=== PATIENT | female | born 1960 | race Caucasian/White ===

== ENCOUNTER 2024-02-29 19:24 | Emergency (ER) | payer MEDICARE, MEDICAID ==
[~2024-02-29] VITALS: Ht 172.7 cm; Wt 73.0 kg
[2024-02-29 19:35] VITALS: BP 112/54; PULSE 81; RESP 20; TEMP 98.2; O2SAT 98
[2024-02-29] MEDS ORDERED: CEPH500C2 MT (21:46)
[2024-02-29] MEDS ORDERED: SULF1TAB47 MT (21:46)
[2024-03-02] MEDS ORDERED: PENT400T16 PO (03:25)
[2024-03-02] MEDS ORDERED: DULO30CA52 PO (03:25)
[2024-03-02] MEDS ORDERED: ATOR-2 PO (03:25)
[2024-03-02] MEDS ORDERED: ATOR40TA70 PO (03:25)
[2024-03-02] MEDS ORDERED: MONT-39 PO (03:25)
[2024-03-02] MEDS ORDERED: ASPI-1406 PO (03:25)
[2024-03-03] MEDS ORDERED: PRED10TA23 PO (13:13)
[2024-03-03] MEDS ORDERED: ALBU05 NEB (13:13)
== END 2024-02-29 22:07 | disposition home or self-care (01) ==
LOC: ER 20:34
DX: R21 Rash and other nonspecific skin eruption (principal); J44.89 Other specified chronic obstructive pulmonary disease; I25.10 Atherosclerotic heart disease of native coronary artery without angina pectoris; I10 Essential (primary) hypertension; I25.2 Old myocardial infarction; Z99.81 Dependence on supplemental oxygen
CPT/HCPCS: 93971; 99284

== ENCOUNTER 2024-05-16 07:52 | Emergency (ER) | payer MEDICARE, MEDICAID ==
[~2024-05-16] VITALS: Ht 165.1 cm; Wt 91.0 kg
[~2024-05-16 07:52] MED LIST: ALBU05 NEB; ASPI-1406 PO; ATOR-2 PO; DULO30CA52 PO; GUAI237L83 MT; METH10OR11 PO; MONT-39 PO; PENT400T16 PO; PRED10TA23 PO
[2024-05-16 08:03] VITALS: O2SAT 94
[2024-05-16] MEDS ORDERED: MORPHINE SULFATE 4 MG/ML INJ (FOR IV/IM USE) IV STA (08:16)
[2024-05-16] MEDS ORDERED: ONDANSETRON HCL 4MG/2ML INJ IV STA (08:16)
[2024-05-16] MEDS ORDERED: SODIUM CHLORIDE 0.9% 1,000 ML IV ONE (08:30)
[2024-05-16 10:40] LABS: CARBON DIOXIDE 32 mEq/L (21-32); CHLORIDE 104 mEq/L (98-107); SODIUM 140 mEq/L (136-145)
[2024-05-16 10:41] LABS: CALCIUM 8.5 mg/dL (8.7-10.4)
[2024-05-16 10:42] LABS: INR 0.9; PROTHROMBIN TIME 10.5 sec (9.6-11.0)
[2024-05-16 10:45] LABS: CREATININE 0.5 mg/dL (0.6-1.0)
[2024-05-16 10:46] LABS: GLUCOSE 92 mg/dL (70-105); TROPONIN I HIGH SENSITIVITY 12 ng/L (3.0-34); UREA NITROGEN BLOOD 14 mg/dL (9-23)
[2024-05-16 10:47] LABS: ALANINE AMINOTRANSFERASE 10 IU/L (10-49); ASPARTATE AMINOTRANSFERASE 12 IU/L (<34)
[2024-05-16 10:48] LABS: ALBUMIN 3.9 g/dL (3.2-4.8); BILIRUBIN DIRECT 0.2 mg/dL (<=3.0); BILIRUBIN TOTAL 0.5 mg/dL (0.1-1.0)
[2024-05-16 10:55] LABS: BASOPHILS % 0.5 % (0.0-2.0); DIFFERENTIAL COMMENT 0; EOSINOPHILS % 1.9 % (0.0-5.0); HEMOGLOBIN. 13.9 g/dL (12.0-16.0); LYMPHOCYTES % 17.1 % (20.0-50.0); MEAN CORPUSCULAR HEMOGLOBIN 34.4 pg (28.0-32.0); MEAN PLATELET VOLUME 7.1 fl (7.4-10.4); MONOCYTES % 6.2 % (2.0-8.0); NEUTROPHILS % 74.3 % (40.0-76.0); PLATELET 246 x1000/uL (130-400); RED BLOOD CELL COUNT 4.03 mill/uL (4.2-5.4); RED CELL DISTRIBUTION WIDTH 18.3 % (11.6-14.6); WHITE BLOOD COUNT 7.6 x1000/uL (4.5-11.0)
[2024-05-16] MEDS: ONDANSETRON HCL 4MG/2ML INJ IV SCH (12:03)
[2024-05-16] MEDS: MORPHINE SULFATE 4 MG/ML INJ (FOR IV/IM USE) IV SCH (12:03)
[2024-05-16] MEDS ORDERED: ACETAMINOPHEN 325MG TABLET PO PRN (12:15)
[2024-05-16] MEDS ORDERED: IPRATROPIUM/ALBUTEROL 0.5-3(2.5)MG/3ML NEB HHN PRN (12:15)
[2024-05-16] MEDS ORDERED: ONDANSETRON HCL 4MG/2ML INJ IV PRN (12:15)
[2024-05-16] MEDS ORDERED: HYDROCODONE/ACETAMINOPHEN 5/325MG TABLET PO PRN (12:15)
[2024-05-16] MEDS ORDERED: DULOXETINE HCL 30MG DR CAPSULE PO SCH (12:15)
[2024-05-16] MEDS ORDERED: ASPIRIN 81MG EC TABLET PO SCH (12:15)
[2024-05-16] MEDS ORDERED: MONTELUKAST SODIUM 10MG TABLET PO SCH (12:31)
[2024-05-16] MEDS ORDERED: PENTOXIFYLLINE 400MG TABLET PO SCH (13:00)
[2024-05-16] MEDS ORDERED: ENOXAPARIN 40MG/0.4ML SYR SUBCUT SCH (13:00)
[2024-05-16] MEDS ORDERED: DEXT 5%/0.45% NACL 1000ML 1,000 ML IV ONE (13:00)
[2024-05-16 20:10] VITALS: BP 120/69; PULSE 70; RESP 20; TEMP 36.7; O2SAT 98
[2024-05-17] MEDS ORDERED: ASPIRIN 81MG EC TABLET PO SCH (09:00)
== END 2024-05-16 20:38 | disposition left against medical advice (07) ==
LOC: ER 07:52
DX: R07.9 Chest pain, unspecified (principal); I11.0 Hypertensive heart disease with heart failure; I25.2 Old myocardial infarction; I50.9 Heart failure, unspecified; J44.89 Other specified chronic obstructive pulmonary disease; Z79.52 Long term (current) use of systemic steroids; Z79.82 Long term (current) use of aspirin; Z79.899 Other long term (current) drug therapy; Z90.49 Acquired absence of other specified parts of digestive tract; Z99.81 Dependence on supplemental oxygen
CPT/HCPCS: 99284; 74176; 96374; 71045; 96375; 80076; 80048; 83690; 85025; 85610; 84484; 36415; J2405; J2270; J7030

== ENCOUNTER 2024-09-21 11:37 | Inpatient (IN) | payer MEDICARE, MEDICAID ==
[~2024-09-21] VITALS: Ht 165.1 cm; Wt 87.1 kg
[~2024-09-21 11:37] MED LIST changes: +AMLO2.5T45 PO; +NICO-789 TD; +P20 MT; -PRED10TA23 PO
[2024-09-21 12:24] LABS: BASOPHILS % 0.6 % (0.0-2.0); EOSINOPHILS % 1.8 % (0.0-5.0); HEMATOCRIT. 41.4 % (36.0-48.0); HEMOGLOBIN. 13.2 g/dL (12.0-16.0); LYMPHOCYTES % 20.5 % (20.0-50.0); MEAN CORPUSCULAR HEMOGLOBIN 30.9 pg (28.0-32.0); MEAN CORPUSCULAR HGB CONC 31.8 g/dL (31.0-37.0); MEAN CORPUSCULAR VOLUME 97.3 fL (81.0-99.0); MEAN PLATELET VOLUME 7.9 fl (7.4-10.4); MONOCYTES % 6.8 % (2.0-8.0); NEUTROPHILS % 70.3 % (40.0-76.0); PLATELET 166 x1000/uL (130-400); RED BLOOD CELL COUNT 4.26 mill/uL (4.2-5.4); RED CELL DISTRIBUTION WIDTH 18.2 % (11.6-14.6)
[2024-09-21 12:40] LABS: CHLORIDE 100 mEq/L (98-107); POTASSIUM 4.2 mEq/L (3.5-5.1); SODIUM 141 mEq/L (136-145)
[2024-09-21 12:42] LABS: CALCIUM 9.1 mg/dL (8.7-10.4); CARBON DIOXIDE 36 mEq/L (21-32)
[2024-09-21 12:46] LABS: CREATININE 0.5 mg/dL (0.6-1.0); GLUCOSE 130 mg/dL (70-105)
[2024-09-21 12:47] LABS: UREA NITROGEN BLOOD 17 mg/dL (9-23)
[2024-09-21 12:48] LABS: TROPONIN I HIGH SENSITIVITY 7 ng/L (3.0-34)
[2024-09-21] MEDS: ACETAMINOPHEN 325MG TABLET PO ONE (13:30)
[2024-09-21] MEDS: KETOROLAC 15MG/ML VIAL IV ONE (13:30)
[2024-09-21] MEDS: LIDOCAINE 5% PATCH TOP SCH (13:30)
[2024-09-21] MEDS: METHYLPREDNISOLONE SOD SUCC 125MG/2ML (ACT-O-VIAL) IV ONE (13:30)
[2024-09-21] MEDS ORDERED: ALBUTEROL (0.083%) 2.5MG/3ML NEB HHN ONE (13:30)
[2024-09-21 13:36] LABS: INR 0.9; PARTIAL THROMBOPLASTIN TIME 24.1 sec (23.4-31.0); PROTHROMBIN TIME 9.6 sec (9.6-11.0)
[2024-09-21 13:41] VITALS: PULSE 74; RESP 20; O2SAT 97
[2024-09-21] MEDS: IPRATROPIUM/ALBUTEROL 0.5-3(2.5)MG/3ML NEB HHN ONE (13:41)
[2024-09-21 18:24] VITALS: BP 112/62; PULSE 80; RESP 16; TEMP 35.7
[2024-09-21] MEDS ORDERED: ACETAMINOPHEN 325MG TABLET PO PRN ×2 (19:00→20:15)
[2024-09-21] MEDS ORDERED: IPRATROPIUM/ALBUTEROL 0.5-3(2.5)MG/3ML NEB HHN PRN (19:00)
[2024-09-21] MEDS ORDERED: NALOXONE HCL 0.4MG/ML VIAL IV PRN (19:15)
[2024-09-21 20:00] VITALS: BP 114/73; PULSE 81; RESP 20; TEMP 36.2; O2SAT 94
[2024-09-21] MEDS ORDERED: ONDANSETRON HCL 4MG/2ML INJ IV PRN (20:15)
[2024-09-21 21:03] LABS: BG BASE EXCESS 4.2 mmol/L (-2.0-3.0); BG CARBOXYHEMOGLOBIN 1.3 % (0.5-1.5); BG DEOXYHEMOGLOBIN 4.7 % (0.0-5.0); BG FRACTION INSPIRED OXYGEN 28; BG HCO3 ACT 32.5 mmol/L (21.0-28.0); BG OXYGEN SATURATION 95.2 % (94.0-98.0); BG PO2 80.9 mmHg (83.0-108.0); BG SAMPLE SITE RIGHT RADIAL; BG TOTAL HEMOGLOBIN 14.1 g/dL (12.0-16.0); BG VENT MODE NASAL CANNULA
[2024-09-21] MEDS ORDERED: BENZ100C86 PO (22:01)
[2024-09-21] MEDS ORDERED: IBUP-2028 PO (22:01)
[2024-09-21] MEDS ORDERED: TRAZ-251 PO (22:08)
[2024-09-21] MEDS ORDERED: ALBUTEROL (0.083%) 2.5MG/3ML NEB HHN PRN (22:30)
[2024-09-21] MEDS ORDERED: GUAIFENESIN-DM 200MG-20MG/10ML UDC PO PRN (22:30)
[2024-09-21] MEDS: TRAZODONE HCL 50MG TABLET PO SCH (22:34)
[2024-09-21 23:30] VITALS: RESP 22
[2024-09-22] VITALS (10 sets, daily range): BP systolic 104–123; BP diastolic 56–70; PULSE 61–72; RESP 15–23; TEMP 35.8–36.8; O2SAT 92–100
[2024-09-22 00:12] LABS: TROPONIN I HIGH SENSITIVITY 4 ng/L (3.0-34)
[2024-09-22 08:24] LABS: HEMATOCRIT. 38.8 % (36.0-48.0); HEMOGLOBIN. 12.7 g/dL (12.0-16.0); LYMPHOCYTES % 9.4 % (20.0-50.0); MEAN CORPUSCULAR HEMOGLOBIN 31.6 pg (28.0-32.0); MEAN CORPUSCULAR HGB CONC 32.6 g/dL (31.0-37.0); MEAN CORPUSCULAR VOLUME 96.8 fL (81.0-99.0); MONOCYTES % 4.4 % (2.0-8.0); NEUTROPHILS % 86.2 % (40.0-76.0); PLATELET 153 x1000/uL (130-400); RED BLOOD CELL COUNT 4.01 mill/uL (4.2-5.4); RED CELL DISTRIBUTION WIDTH 17.4 % (11.6-14.6); WHITE BLOOD COUNT 8.2 x1000/uL (4.5-11.0)
[2024-09-22] MEDS ORDERED: ASPIRIN 81MG EC TABLET PO SCH (09:00)
[2024-09-22 09:16] LABS: TROPONIN I HIGH SENSITIVITY < 4 ng/L (3.0-34)
[2024-09-22] MEDS: BUDESONIDE 0.5MG/2ML NEB HHN SCH (09:31)
[2024-09-22] MEDS: IPRATROPIUM/ALBUTEROL 0.5-3(2.5)MG/3ML NEB HHN SCH (09:31)
[2024-09-22 09:37] LABS: CARBON DIOXIDE 35 mEq/L (21-32); CHLORIDE 98 mEq/L (98-107); POTASSIUM 4.4 mEq/L (3.5-5.1); SODIUM 139 mEq/L (136-145)
[2024-09-22 09:43] LABS: CREATININE 0.5 mg/dL (0.6-1.0); GLUCOSE 264 mg/dL (70-105); UREA NITROGEN BLOOD 14 mg/dL (9-23)
[2024-09-22 09:47] LABS: T4 FREE 1.04 ng/dL (0.89-1.76)
[2024-09-22] MEDS: AMLODIPINE 2.5MG TABLET PO SCH (09:47)
[2024-09-22] MEDS: NICOTINE 21MG PATCH TD SCH (09:47)
[2024-09-22] MEDS: ASPIRIN 81MG EC TABLET PO SCH (09:47)
[2024-09-22] MEDS: ENOXAPARIN 40MG/0.4ML SYR SUBCUT SCH (09:48)
[2024-09-22] MEDS: HYDROCODONE/ACETAMINOPHEN 5/325MG TABLET PO PRN (10:36)
[2024-09-22] MEDS: ATORVASTATIN CALCIUM 40MG TABLET PO SCH (20:20)
[2024-09-23] VITALS (7 sets, daily range): BP systolic 93–137; BP diastolic 53–82; PULSE 56–76; RESP 15–20; TEMP 36–36.6; O2SAT 94–99
== END 2024-09-23 14:20 | disposition home or self-care (01) | DRG 189 ==
LOC: ER 11:37 → EDBEDREQ 16:22 → EDBEDREQTM 16:22 → ENRESERV 16:32 → 6WST 17:56
PROVIDERS: ADMIT Internal Medicine; ATTEND Internal Medicine
PROC: 5A09357 Assistance with Respiratory Ventilation, Less than 24 Consecutive Hours, Continuous Positive Airway Pressure (ICD-10-PCS; principal; 2024-09-21)
PROC: 5A09357 Assistance with Respiratory Ventilation, Less than 24 Consecutive Hours, Continuous Positive Airway Pressure (ICD-10-PCS; 2024-09-22)
PROC: 5A09357 Assistance with Respiratory Ventilation, Less than 24 Consecutive Hours, Continuous Positive Airway Pressure (ICD-10-PCS; 2024-09-23)
DX: J96.21 Acute and chronic respiratory failure with hypoxia (principal); J44.1 Chronic obstructive pulmonary disease with (acute) exacerbation; J96.22 Acute and chronic respiratory failure with hypercapnia; I50.9 Heart failure, unspecified; K21.9 Gastro-esophageal reflux disease without esophagitis; I25.10 Atherosclerotic heart disease of native coronary artery without angina pectoris; I11.0 Hypertensive heart disease with heart failure; E11.51 Type 2 diabetes mellitus with diabetic peripheral angiopathy without gangrene; I25.2 Old myocardial infarction; Z87.891 Personal history of nicotine dependence; Z99.81 Dependence on supplemental oxygen; Z79.899 Other long term (current) drug therapy
CPT/HCPCS: 36415; 36600; 71045; 80048; 82375; 82805; 84439; 84443; 84484; 85025; 93005; 94070; 94640; 94660; 94664; 98960; 99285; G0378; J1650; J1885; J2919; J7626

== ENCOUNTER 2024-10-13 21:34 | Emergency (ER) | payer MEDICARE, MEDICAID ==
[~2024-10-13] VITALS: Ht 162.6 cm; Wt 91.0 kg
[~2024-10-13 21:34] MED LIST changes: +BENZ100C86 PO; -P20 MT; +TRAZ-251 PO
[2024-10-13 22:09] VITALS: O2SAT 96
[2024-10-13 23:12] LABS: BASOPHILS % 0.6 % (0.0-2.0); EOSINOPHILS % 1.2 % (0.0-5.0); HEMATOCRIT. 38.7 % (36.0-48.0); HEMOGLOBIN. 12.6 g/dL (12.0-16.0); LYMPHOCYTES % 27.6 % (20.0-50.0); MEAN PLATELET VOLUME 7.1 fl (7.4-10.4); MONOCYTES % 7.2 % (2.0-8.0); NEUTROPHILS % 63.4 % (40.0-76.0); PLATELET 305 x1000/uL (130-400); RED BLOOD CELL COUNT 3.98 mill/uL (4.2-5.4); RED CELL DISTRIBUTION WIDTH 17.7 % (11.6-14.6)
[2024-10-13 23:30] LABS: CREATININE 0.6 mg/dL (0.6-1.0); UREA NITROGEN BLOOD 12 mg/dL (9-23)
[2024-10-14 00:13] VITALS: BP 138/78; PULSE 74; RESP 22; TEMP 36.7; O2SAT 94
== END 2024-10-14 00:16 | disposition home or self-care (01) ==
LOC: ER 21:34
DX: R60.9 Edema, unspecified (principal); I11.0 Hypertensive heart disease with heart failure; I50.9 Heart failure, unspecified; J44.9 Chronic obstructive pulmonary disease, unspecified; Z79.899 Other long term (current) drug therapy; Z98.890 Other specified postprocedural states
CPT/HCPCS: 36415; 80048; 85025; 93971; 99284

== ENCOUNTER 2025-03-19 19:29 | Inpatient (IN) | payer MEDICARE, MEDICAID ==
[~2025-03-19] VITALS: Ht 162.6 cm; Wt 81.6 kg
[~2025-03-19 19:29] MED LIST changes: +APIX5TAB MT; +APIX5TAB PO; +ASPI-1497 MT; +ATOR-388 MT; +CEL200 PO; +FLUT1BLS10 NEB; +FURO-151 MT; +FURO40TA5 PO; +GABA-529 PO; +PRED5TAB48 MT
[2025-03-19] MEDS: SODIUM CHLORIDE 0.9% 1,000 ML IV ONE (20:51)
[2025-03-19 21:22] LABS: BASOPHILS % 0.3 % (0.0-2.0); EOSINOPHILS % 3.8 % (0.0-5.0); HEMATOCRIT. 31.7 % (36.0-48.0); HEMOGLOBIN. 10.4 g/dL (12.0-16.0); LYMPHOCYTES % 28.2 % (20.0-50.0); MEAN PLATELET VOLUME 6.7 fl (7.4-10.4); MONOCYTES % 7.4 % (2.0-8.0); NEUTROPHILS % 60.3 % (40.0-76.0); PLATELET 256 x1000/uL (130-400); RED BLOOD CELL COUNT 3.23 mill/uL (4.2-5.4); RED CELL DISTRIBUTION WIDTH 14.9 % (11.6-14.6)
[2025-03-19 21:37] LABS: INR 1.0
[2025-03-19 21:38] LABS: CREATININE 0.7 mg/dL (0.6-1.0); UREA NITROGEN BLOOD 15 mg/dL (9-23)
[2025-03-19 21:39] LABS: PROTEIN TOTAL 6.0 g/dL (6.0-8.3); TROPONIN I HIGH SENSITIVITY 6 ng/L (3.0-34)
[2025-03-19 21:40] LABS: ASPARTATE AMINOTRANSFERASE 14 IU/L (<34); BILIRUBIN DIRECT 0.1 mg/dL (<=3.0)
[2025-03-19 21:41] LABS: BILIRUBIN TOTAL 0.5 mg/dL (0.1-1.0)
[2025-03-19 23:38] LABS: BG BASE EXCESS 12.4 mmol/L (-2.0-3.0); BG CARBOXYHEMOGLOBIN 1.0 % (0.5-1.5); BG DEOXYHEMOGLOBIN 6.8 % (0.0-5.0); BG FLOW(L/min) 2.00 L/min; BG FRACTION INSPIRED OXYGEN 28%; BG HCO3 ACT 42.0 mmol/L (21.0-28.0); BG METHEMOGLOBIN 0.3 % (0.5-1.5); BG OXYGEN SATURATION 93.1 % (94.0-98.0); BG OXYHEMOGLOBIN 91.9 % (94.0-98.0); BG PCO2 87.0 mmHg (32.0-45.0); BG PH 7.302 (7.350-7.450); BG PO2 71.1 mmHg (83.0-108.0); BG SAMPLE SITE RIGHT RADIAL; BG TOTAL HEMOGLOBIN 11.8 g/dL (12.0-16.0); BG VENT MODE NASAL CANNULA
[2025-03-20] MEDS ORDERED: ASPIRIN 81MG TABLET PO ONE (01:45)
[2025-03-20] MEDS ORDERED: IOHEXOL-350 100 ML BOTTLE ONE (02:07)
[2025-03-20 03:01] VITALS: BP 125/67; PULSE 68; RESP 20; TEMP 36.7516
[2025-03-20 08:00] VITALS: BP 126/65; PULSE 63; RESP 18; TEMP 36.3; O2SAT 95
[2025-03-20] MEDS ORDERED: ACETAMINOPHEN 325MG TABLET PO PRN ×2 (10:45)
[2025-03-20] MEDS ORDERED: ONDANSETRON HCL 4MG/2ML INJ IV PRN (10:45)
[2025-03-20] MEDS ORDERED: GUAIFENESIN 200MG/10ML SUGAR FREE UDC PO PRN (10:45)
[2025-03-20] MEDS ORDERED: CLONIDINE 0.1MG TABLET PO PRN (10:45)
[2025-03-20] MEDS ORDERED: IPRATROPIUM/ALBUTEROL 0.5-3(2.5)MG/3ML NEB HHN PRN ×2 (10:45→23:30)
[2025-03-20 12:00] VITALS: BP 113/49; PULSE 61; RESP 19; TEMP 36.3; O2SAT 97
[2025-03-20] MEDS: GABAPENTIN 100MG CAPSULE PO SCH (13:17)
[2025-03-20] MEDS ORDERED: *PATIENT'S OWN MEDICATION STORAGE XX SCH (15:15)
[2025-03-20 16:00] VITALS: BP 129/63; PULSE 61; RESP 19; TEMP 36.6; O2SAT 97
[2025-03-20] MEDS ORDERED: NALOXONE HCL 0.4MG/ML VIAL IV PRN (19:45)
[2025-03-20 20:00] VITALS: BP 125/70; PULSE 63; RESP 18; TEMP 36.4; O2SAT 95
[2025-03-20] MEDS ORDERED: TRAZ-251 PO (21:21)
[2025-03-20] MEDS ORDERED: METO5TAB2 PO (21:21)
[2025-03-20] MEDS ORDERED: CLOP75TA33 PO (21:25)
[2025-03-20] MEDS ORDERED: MELO-104 PO (21:26)
[2025-03-20] MEDS: HYDROCODONE/ACETAMINOPHEN 5/325MG TABLET PO PRN (21:27)
[2025-03-20] MEDS ORDERED: FLUT1BLS10 INH (22:05)
[2025-03-20] MEDS ORDERED: MONT-39 PO (22:05)
[2025-03-20] MEDS: AMLODIPINE 2.5MG TABLET PO SCH (22:11)
[2025-03-20] MEDS: APIXABAN 5 MG TABLET PO SCH (22:12)
[2025-03-20] MEDS: TRAZODONE HCL 50MG TABLET PO SCH (22:12)
[2025-03-20] MEDS: ACYCLOVIR 400 MG TABLET PO SCH (22:15)
[2025-03-21] VITALS (8 sets, daily range): BP systolic 97–126; BP diastolic 43–77; PULSE 57–81; RESP 16–18; TEMP 36.3–36.6; O2SAT 95–98
[2025-03-21] MEDS ORDERED: METHADONE HCL 5MG TABLET PO SCH (00:45)
[2025-03-21] MEDS: METHADONE HCL 10MG TABLET PO SCH (01:21)
[2025-03-21 07:20] LABS: CREATININE 0.5 mg/dL (0.6-1.0); UREA NITROGEN BLOOD 7 mg/dL (9-23)
[2025-03-21 07:26] LABS: BASOPHILS % 0.3 % (0.0-2.0); EOSINOPHILS % 5.5 % (0.0-5.0); HEMATOCRIT. 32.2 % (36.0-48.0); HEMOGLOBIN. 10.8 g/dL (12.0-16.0); LYMPHOCYTES % 39.9 % (20.0-50.0); MEAN PLATELET VOLUME 6.9 fl (7.4-10.4); MONOCYTES % 8.6 % (2.0-8.0); NEUTROPHILS % 45.7 % (40.0-76.0); PLATELET 307 x1000/uL (130-400); RED BLOOD CELL COUNT 3.31 mill/uL (4.2-5.4); RED CELL DISTRIBUTION WIDTH 14.8 % (11.6-14.6)
[2025-03-21] MEDS: ASPIRIN 81MG EC TABLET PO SCH (08:57)
[2025-03-21] MEDS: DULOXETINE HCL 30MG DR CAPSULE PO SCH (08:58)
[2025-03-21] MEDS: NICOTINE 21MG PATCH TD SCH (09:00)
[2025-03-21] MEDS: FUROSEMIDE 40MG TABLET PO SCH (09:03)
[2025-03-21] MEDS: CELECOXIB 200MG CAPSULE PO SCH (09:04)
[2025-03-21] MEDS ORDERED: ACYC-58 PO (18:10)
[2025-03-21] MEDS: BUDESONIDE 0.5MG/2ML NEB HHN SCH (20:47)
[2025-03-22 05:09] LABS: HSV TYPE 2 SPECIFIC AB IGG Non Reactive (Non Reactive)
[2025-03-25] MEDS ORDERED: SULF1TAB48 MT (15:15)
[2025-03-26] MEDS ORDERED: KEPP500 MT (13:40)
== END 2025-03-21 21:50 | disposition home or self-care (01) | DRG 595 ==
LOC: ER 19:29 → 6WST 03-20 00:55 → EDBEDREQTM 03-20 01:06 → EDBEDREQDT 03-20 01:06 → EDBEDREQ 03-20 01:06 → ENRESERV 03-20 01:20
PROVIDERS: ADMIT Internal Medicine; ATTEND Internal Medicine
DX: B02.9 Zoster without complications (principal); L89.313 Pressure ulcer of right buttock, stage 3; I11.0 Hypertensive heart disease with heart failure; Z79.01 Long term (current) use of anticoagulants; Z79.02 Long term (current) use of antithrombotics/antiplatelets; J44.89 Other specified chronic obstructive pulmonary disease; Z99.81 Dependence on supplemental oxygen; B00.1 Herpesviral vesicular dermatitis; E78.5 Hyperlipidemia, unspecified; G62.9 Polyneuropathy, unspecified; Z95.5 Presence of coronary angioplasty implant and graft; Z86.711 Personal history of pulmonary embolism; Z79.82 Long term (current) use of aspirin; Z79.899 Other long term (current) drug therapy; Z86.718 Personal history of other venous thrombosis and embolism; Z87.891 Personal history of nicotine dependence
CPT/HCPCS: 36415; 36600; 71045; 71275; 80048; 80076; 82375; 82805; 83880; 84484; 85025; 85379; 86695; 86696; 87070; 87077; 87186; 93005; 93970; 94070; 94640; 99285; J7030; J7626; Q9967